=== PATIENT | female | born 1985 | race Caucasian/White ===

== ENCOUNTER → 2017-06-24 | Outpatient (CLI) | payer OTHER ==
[~2017-06-24] MED LIST: BACTRIM DS 8001 TA1 PO; MULTIPLE VITAMI1 CAP PO; NKHM; VICO75300 PO; ZOFRAN ODT4 MG SL
[2017-06-25 15:03] LABS: HIV 1+2 AB + HIV1 P24 AG Non Reactive (Non Reactive)
== END | disposition home or self-care (01) ==
LOC: LAB 12:33
PROVIDERS: Obstetrics & Gynecology
DX: Z20.2 Contact with and (suspected) exposure to infections with a predominantly sexual mode of transmission (principal)

== ENCOUNTER → 2018-09-01 | Outpatient (CLI) | payer MEDICAID ==
[2018-09-01 10:52] LABS: BASO # 0.1 10*3/uL (0.0-0.1); BASO % 0.5 % (0.0-1.0); EOS # 0.1 10*3/uL (0.0-0.4); EOS % 0.8 % (1.0-4.0); HEMATOCRIT 42.8 % (37.0-47.0); LYMPH # 3.9 10*3/uL (1.3-4.4); LYMPH % 36.2 % (27.0-41.0); MEAN CELL VOLUME 96.2 fl (81.0-99.0); MEAN CORPUSCULAR HGB 31.5 pg (27.0-31.0); MEAN CORPUSCULAR HGB CONC 32.7 g/dl (33.0-37.0); MEAN PLATELET VOLUME 11.6 fl (9.6-12.3); MONO # 0.9 10*3/uL (0.1-1.0); NEUT # 5.8 10*3/uL (2.3-7.9); NEUT % 53.9 % (47.0-73.0); PLATELET COUNT AUTOMATED 247 10*3/uL (130-400); RED BLOOD COUNT 4.45 10*6/uL (4.10-5.10); RED CELL DISTRI WIDTH 12.2 % (0-14.5); WHITE BLOOD COUNT 10.8 10*3/uL (4.8-10.8)
[2018-09-01 10:56] LABS: ALBUMIN 3.9 gm/dl (3.1-4.5); ALKALINE PHOSPHATASE 62 U/L (45-117); BUN 10 mg/dl (7-24); CHLORIDE 104 mmol/L (98-107); CHOLESTEROL 171 mg/dL (<200); CREATININE 0.78 mg/dL (0.55-1.02); FREE T4 0.71 ng/dl (0.76-1.46); HDL CHOLESTEROL 37 mg/dl (40-60); LDL CHOLESTEROL 114 mg/dL (9-159); POTASSIUM 3.5 mmol/L (3.5-5.1); SGOT/AST 18 IU/L (3-35); SGPT/ALT 48 U/L (12-78); SODIUM 138 mmol/L (136-145); TOTAL PROTEIN 7.4 gm/dL (6.4-8.2); TRIGLYCERIDES 102 mg/dl (<150); VLDL CHOLESTEROL 20 mg/dL (6-40)
== END | disposition home or self-care (01) ==
LOC: LAB 09:43
PROVIDERS: Family Medicine
DX: E55.9 Vitamin D deficiency, unspecified (principal); F41.9 Anxiety disorder, unspecified; E66.09 Other obesity due to excess calories

== ENCOUNTER → 2020-07-01 | Outpatient (CLI) | payer OTHER | END | disposition home or self-care (01) | LOC: LAB 08:17 | PROVIDERS: ATTEND Family Medicine | DX: E03.9 Hypothyroidism, unspecified (principal) ==

== ENCOUNTER → 2024-12-20 | Outpatient (CLI) | payer OTHER | END | disposition home or self-care (01) | LOC: US 00:05 | PROVIDERS: ATTEND Family Medicine | DX: R22.1 Localized swelling, mass and lump, neck (principal) ==

== ENCOUNTER → 2025-01-13 | Outpatient (CLI) | payer OTHER | END | disposition home or self-care (01) | LOC: US 14:37 | PROVIDERS: ATTEND Student in an Organized Health Care Education/Training Program | DX: M79.9 Soft tissue disorder, unspecified (principal) ==

== ENCOUNTER → 2025-03-11 | Outpatient (CLI) | payer OTHER ==
[2025-03-11 17:14] LABS: BASO # 0.1 10*3/uL (0.0-0.1); BASO % 0.4 % (0.0-1.0); EOS # 0.1 10*3/uL (0.0-0.4); EOS % 0.6 % (1.0-4.0); MEAN CELL VOLUME 93.9 fl (81.0-99.0); MEAN CORPUSCULAR HGB 31.9 pg (27.0-31.0); MEAN PLATELET VOLUME 10.7 fl (9.6-12.3); MONO # 0.9 10*3/uL (0.1-1.0); MONO % 6.2 % (3.0-9.0); NEUT # 8.7 10*3/uL (2.3-7.9); NEUT % 61.9 % (47.0-73.0); NUCLEATED RED BLOOD CELL 0.0 % (0.0-0.0); NUCLEATED RED BLOOD CELL 0.0 10*3/uL (0.0-0.0); PLATELET COUNT AUTOMATED 266 10*3/uL (130-400); RED CELL DISTRI WIDTH 12.7 % (0-14.5)
== END | disposition home or self-care (01) ==
LOC: LAB 16:57
PROVIDERS: ATTEND Family Medicine
DX: M79.9 Soft tissue disorder, unspecified (principal); D72.9 Disorder of white blood cells, unspecified